=== PATIENT | female | born 1945 | race Caucasian/White ===

== ENCOUNTER 2025-07-15 13:04 | Outpatient (AMB) | payer MEDICARE, BC, SELFPAY ==
--- NOTE | 2025-07-15 13:15 | MHC.PC.OV ---
Vital Signs 07/15/25 13:18 Height 5 ft 2.99 in Weight 215 lb 2 oz BMI 38.1 BP 112/62 Blood Pressure Location Rt brachial Position Sitting Respiration 14 Pulse 88 Pulse Source Pulse Oximeter Temp 98.4 F Temp Source Oral Pulse Oximetry (%) 95 Oxygen Delivery Method Room Air Intake Visit Reasons: [employer] establish care Intake Note: New patient visit Mess Cook Required: No Allergies ciprofloxacin (From Cipro) Allergy (Severe, Verified 07/15/25 13:21) head itching codeine Allergy (Severe, Verified 07/15/25 13:21) Hallucinations amoxicillin (From Augmentin) Allergy (Unknown, Verified 07/15/25 13:21) Itching clavulanic acid (From Augmentin) Allergy (Unknown, Verified 07/15/25 13:21) Itching nitrofurantoin (From Macrobid) Allergy (Unknown, Verified 07/15/25 13:21) Itching Medication List - Last Reconciled 07/15/25 by Josy Elaine PA-C acetaminophen (Tylenol) 325 mg PO QID PRN albuterol sulfate 90 mcg/actuation 2 puffs inhalation Q4-6H PRN beclomethasone dipropionate 80 mcg/actuation (Qvar RediHaler) 1 inh inhalation Q12H cholecalciferol (vitamin D3) 25 mcg PO DAILY [colostrum PO] [cranberry PO .twice daily] docusate sodium (Colace) 100 mg PO DAILY furosemide (Lasix) PO PRN hydrochlorothiazide 12.5 mg PO DAILY lisinopril 5 mg PO DAILY lutein . metformin ER 500 mg PO DAILY multivitamin 1 tab PO DAILY simvastatin 10 mg PO DAILY Tobacco use date assessed: 07/15/25 Fall risk assessment: No Falls in past year Last assessed Fall Risk: 07/15/25 Dental Screening Dental Screen Date: 07/15/25 Did you have a dental visit in the last 12 months?: Yes Did you have a dental problem in the last 6 months where you did not have access to dental care?: No Was dental information given to patient?: Patient has dentist HPI [employer] establish care HPI Details Pt is a 80 y/o female who presents today to establish care. She is transferring from Dr. Gamboa's office. She has a hx of htn, hld, t2dm, kidney stones, fatty liver, zoe (unable to be treated), bcc, chronic low back pain, asthma pulm: Follows with Allergy and immunology for asthma. Recently was prescribed an inhaler that it is not covered by insurance. She is not on any inhaled steroids and has not tried anything in the past. Only uses albuterol as needed. endo: follows with endo for t2dm, hyperparathyroidism (s/p partial parathyroidectomy 01/13) Uro: follows with [facility] for renal stones, hx of lithotripsy and stents msk: hx of chronic low back pain, has tried cortisone injections. Follows with [facility]. 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 Chapin completed in 2021- states never has to go back Bone density: [facility]- states wnl (2022), scheduled this fall 09/05/25 for repeat Low-dose chest CT: We will discuss at follow up [facility] Medical History (Updated 07/17/25 @ 12:29 by Josy Elaine PA-C) H/O nephrolithotomy with removal of calculi Family History (Updated 07/15/25 @ 13:40 by Christel Taylor CMA) Mother Diabetes Other Substance abuse Social History Housing: House Patient Tobacco Use Status: Current everyday Tobacco user Cigarettes Per Day: 7 e-Cigarette/Vaping Use: Never Used service: No Current occupational status: retired Cognitive needs: No Hearing needs: No Vision needs: No Questionnaire PHQ-9 Over the last 2 weeks, how often have you been bothered by any of the following problems? 1. Little interest or pleasure in doing things: not at all 2. Feeling down, depressed, or hopeless: not at all 3. Trouble falling or staying asleep, or sleeping too much: several days 4. Feeling tired or having little energy: several days 5. Poor appetite or overeating: not at all 6. Feeling bad about yourself - or that you are a failure or have let yourself or your family down: not at all 7. Trouble concentrating on things, such as reading the newspaper or watching television: not at all 8. Moving or speaking so slowly that other people could have noticed. Or the opposite - being so fidgety or restless that you have been moving around a lot more than usual: not at all 9. Thoughts that you would be better off or of hurting yourself in some way: not at all Total score: 2 Source: Developed by Drs. Trenton Fernandez, Shane Diop and colleagues, with an educational benja from [employer] ([employer]). Thrive Questionnaire I am a: Patient What is your living situation today?: I have a steady place to live Within the past 12 months, did the food you bought not last and you didn't have the money to get more?: Never true Within the past 12 months, did you worry whether your food would run out before you got money to buy more?: Never true Do you have trouble paying for medicines?: No Do you have trouble getting transportation to medical appointments?: No Do you have trouble paying your heating and electricity bill?: No Do you have trouble taking care of your child, family member or friend?: No Do you have trouble with day-to-day activities such as bathing, preparing meals, shopping, managing finances, etc.?: No Are you currently unemployed and looking for a job?: No Are you interested in more education?: No Please select the resources that you would like help with: None Currently or been in a relationship where the following occur: No concerns reported THRIVE Score: 0 AUDIT C Alcohol Use Questionnaire (AUDIT-C) 1. How often do you have a drink containing alcohol?: Never 3. How often do you have six or more drinks on one occasion?: Never Total Score: 0 NEELAM-7 AMB Questionnaire NEELAM-7 Feeling nervous, anxious, or on edge: 0 = Not at all Not being able to stop or control worryin = Not at all Worrying too much about different things: 0 = Not at all Trouble relaxin = Not at all Being so restless that it is hard to sit still: 0 = Not at all Becoming easily annoyed or irritable: 0 = Not at all Feeling afraid as if something awful might happen: 0 = Not at all Total NEELAM-7 score (0-4 normal; 5-9 mild; 10-14 moderate; 15-21 severe): 0 Source: Developed by Whitney Miller Kurt Kroenke and colleagues, with an educational benja from [employer] ([employer]). Physical exam (Primary Care) Vital Signs: Last Vital Signs Temp 98.4 F 07/15/25 13:18 Pulse 88 07/15/25 13:18 Resp 14 07/15/25 13:18 BP 112/62 07/15/25 13:18 Pulse Ox 95 07/15/25 13:18 Oxygen Delivery Method Room Air 07/15/25 13:18 BMI result Body Mass Index 38.1 Tobacco/Smoking Status: Tobacco use Status Tobacco use date assessed 07/15/25 07/15/25 13:25 Patient Tobacco Use Status Current everyday Tobacco 07/15/25 13:25 e-Cigarette/Vaping Use Never Used 07/15/25 13:25 PHQ-9: PHQ-9 Score PHQ-9: Total score 2 07/15/25 14:03 Currently or been in a relationship where the following occur: No concerns reported Const Orientation/consciousness: patient oriented x3 HENMT Ears: hearing grossly normal bilaterally Neck Thyroid: Thyroid normal Lymphatic: no lymphadenopathy noted Resp Auscultation: clear to auscultation bilaterally Cardio Rate: regular rate Rhythm: regular rhythm Heart sounds: S1 normal heart sound present and S2 normal heart sound present GI Inspection: Yes normal to inspection Palpation (GI): Soft to palpation and Other GI palpation findings present (nontender, no cva tenderness) Auscultation: normoactive bowel sounds Rectal Exam - Female: deferred Skin General skin exam: no rashes or lesions noted Neuro General: patient oriented x3, gait normal and no focal motor deficits Coding Level of Care Code New Pt Level 4 (30056) Complex EM visit Add On G2211 Diagnoses Controlled type 2 diabetes mellitus E11.9 Dyslipidemia E78.5 Renal stones N20.0 Tobacco abuse Z72.0 Right knee pain M25.561 Asthma J45.909 Assessment & Plan Assessment & Plan (1) Controlled type 2 diabetes mellitus: Code(s): E11.9 - Type 2 diabetes mellitus without complications Category: Medical Plan: following with endo will check labs Continue metformin (2) Dyslipidemia: Code(s): E78.5 - Hyperlipidemia, unspecified Category: Medical Plan: We will monitor. Currently simvastatin 10 mg. Labs ordered today (3) Renal stones: Code(s): N20.0 - Calculus of kidney Category: Medical Plan: Followed by urology (4) Tobacco abuse: Code(s): Z72.0 - Tobacco use Category: Medical Plan: Encouraged smoking cessation. We will follow up to review low-dose CAT scan screening. (5) Right knee pain: Code(s): M25.561 - Pain in right knee Category: Medical Plan: X-ray ordered. We will follow up pending test results. Stressful (6) Asthma: Code(s): J45.909 - Unspecified asthma, uncomplicated Category: Medical Plan: We will try QVAR. She will let me know if by insurance Orders: Orders Lipid Panel 07/15/25 E11.9 - Type 2 diabetes mellitus without complications, E78.5 - Hyperlipidemia, unspecified, G89.29 - Other chronic pain, M25.562 - Pain in left knee, M54.50 - Low back pain, unspecified, N20.0 - Calculus of kidney, Z72.0 - Tobacco use TSH reflex Free T4 07/15/25 E11.9 - Type 2 diabetes mellitus without complications, E78.5 - Hyperlipidemia, unspecified, G89.29 - Other chronic pain, M25.562 - Pain in left knee, M54.50 - Low back pain, unspecified, N20.0 - Calculus of kidney, Z72.0 - Tobacco use US carotid duplex BI 07/15/25 E11.9 - Type 2 diabetes mellitus without complications, E78.5 - Hyperlipidemia, unspecified, I10 - Essential (primary) hypertension, M54.2 - Cervicalgia, Z72.0 - Tobacco use Complete Blood Count Auto Diff 07/15/25 E11.9 - Type 2 diabetes mellitus without complications, E78.5 - Hyperlipidemia, unspecified, G89.29 - Other chronic pain, M25.562 - Pain in left knee, M54.50 - Low back pain, unspecified, N20.0 - Calculus of kidney, Z72.0 - Tobacco use Comprehensive [place]. Panel Fast 07/15/25 E11.9 - Type 2 diabetes mellitus without complications, E78.5 - Hyperlipidemia, unspecified, G89.29 - Other chronic pain, M25.562 - Pain in left knee, M54.50 - Low back pain, unspecified, N20.0 - Calculus of kidney, Z72.0 - Tobacco use Hemoglobin A1c 07/15/25 E11.9 - Type 2 diabetes mellitus without complications, E78.5 - Hyperlipidemia, unspecified, G89.29 - Other chronic pain, M25.562 - Pain in left knee, M54.50 - Low back pain, unspecified, N20.0 - Calculus of kidney, R73.01 - Impaired fasting glucose, Z72.0 - Tobacco use UA CC w/rflx Micro + Cult 07/15/25 E11.9 - Type 2 diabetes mellitus without complications, E78.5 - Hyperlipidemia, unspecified, G89.29 - Other chronic pain, M25.562 - Pain in left knee, M54.50 - Low back pain, unspecified, N20.0 - Calculus of kidney, R30.0 - Dysuria, Z72.0 - Tobacco use Microalbumin, Random (w Creat) 07/15/25 E11.9 - Type 2 diabetes mellitus without complications, E78.5 - Hyperlipidemia, unspecified, G89.29 - Other chronic pain, M25.562 - Pain in left knee, M54.50 - Low back pain, unspecified, N20.0 - Calculus of kidney, Z72.0 - Tobacco use XR knee RT 2V 07/15/25 M25.561 - Pain in right knee, M25.562 - Pain in left knee Medications: New beclomethasone dipropionate 80 mcg/actuation (Qvar RediHaler) 1 inh inhalation Q12H 10.6 grams 5RF
[2025-07-15 13:18] VITALS: BP 112/62; PULSE 88; RESP 14; TEMP 36.9; O2SAT 95; BMI 38.1
--- OUTSIDE RECORDS SUMMARY | 2025-07-15 15:24 | XMS_ITS ---
Author Name [facility] Organization Unknown Encounters Encounter Type Encounter Reason Primary Diagnosis Location Date Emergency Chest pain, unspecified [facility] 01/30/2023 Emergency Calculus of kidney [facility] 09/10/2022 Care Team Organization Name Specialty Phone Email Start Date End Da te [facility] 01/30/2023 06/30/2024 [facility]OLIVIER [facility] Primary [facility] 01/30/2023 01/30/2023 [facility] 09/10/2022 09/10/2022
--- OUTSIDE RECORDS SUMMARY | 2025-07-15 15:24 | XMS_ITS | Encounter Summary ---
Author Organization [facility] Address [address] [place] [address] Care Team Providers Care Rotary Planer Set Up Operator Name Role Phone Rubio Gamboa MD Primary Care Provider [phone] Encounter Details Date Type Department Care Team (Late st Contact Info) Description 12/12/2023 Orders Only [facility] [address], [place] [id number] Melinda Gardner APRN [address] [place] [address] Frequency of urination; Flank pain; Burning with urination Social History Tobacco Use Types Packs/Day Years Used Date Smoking Tobacco: Every Day Cigarettes Smokeless Tobacco: Never Alcohol Use Standard Drinks/Week Comments Yes 0 (1 standard drink = 0.6 oz pur e alcohol) rare Comments No Sex and Gender Information Value Date Recorded Sex Assigned at Not on file Legal Sex Female 1:53 PM EDT Gender Identity Not on file Sexual Orientation Not on file documented as of this encounter Plan of Treatment Not on file documented as of this encounter Procedures Procedure Name Priority Date/Time Associated Diagnosis Comments URINE CULTURE Routine 12/12/2023 12:51 PM EST Frequency of urination Flank pain Burning with urination documented in this encounter Results * Urine culture (12/12/2023 12:51 PM EST) Urine Culture, Routine Less than 10,000 CFU/mL. Clinical significance is unlikely for organism(s) present in quantities of less than 10,000 CFU/mL. KHANH SUSCEPTIBILITY 12/13/2023 11:48 AM EST [facility] Urine URINE SPECIMEN OBTAINED BY CLEAN CATCH PROCEDURE / Unknown Collection / Unknown 12/12/2023 12:51 PM EST 12/12/2023 12:52 PM EST Melinda Gardner APRN MICROBIOLOGY - GENERAL ORD ERABLES Final Result Performing Organization Address City/State/[facility] Co de Phone Number [facility] [address] [place] [address] documented in this encounter Visit Diagnoses Diagnosis Frequency of urination Urinary frequency Flank pain Abdominal pain, unspecified site Burning with urination Dysuria documented in this encounter Care Teams Rotary Planer Set Up Operator Relationship Specialty Start Date End Date Rubio Gamboa MD [address] [place] [phone] PCP - General Internal Medicine 01/30/23 documented as of this encounter
--- OUTSIDE RECORDS SUMMARY | 2025-07-15 15:24 | XMS_ITS | Clinical Summary ---
Author Organization [place] [facility] Address [address] [facility] [address] Care Team Providers Care Scrap Kettle Tender Name Role Phone Rubio Gamboa MD Primary Care Provider [phone] Allergies Active Allergy Reactions Criticality Noted Date Comments Amoxicillin-Pot Clavulanate Itching Low 12/11/19 24 Ciprofloxacin Dermatitis Low 07/07/2020 Codeine Mental Status Change 07/07/2020 Nitrofurantoin Itching,Chest Pain High 01/30/2023 Medications metFORMIN ER (GLUCOPHAGE-XR) 500 mg XR 24 hr extended release tablet 07/02/2020 Acti ve simvastatin (ZOCOR) 10 mg tablet TAKE 1 TABLET BY MOUTH EVERY DAY 03/19/2020 Active lisinopriL (PRINIVIL,ZESTR IL) 5 mg tablet 07/02/2020 Act cooper hydroCHLOROthia zide (HYDRODIURIL) 25 mg tablet Take 0.5 tablets (12.5 mg total) by mouth daily. 05/02/2020 Active cranberry conc-ascorbic acid 4,200-20 mg Cap Take by mouth. Active multivitamin with minerals (ONE-A-DAY 50 PLUS ORAL) Take by mouth. Active cholecalciferol , vitamin D3, (VITAMIN D3 ORAL) Take 2,000 Units by mouth. Active acetaminophen (TYLENOL) 500 mg tablet Take 2 tablets (1,000 mg total) by mouth as needed. Active FREESTYLE LITE test strips CHECK ONCE DAILY GLUCOSE 04/21/2020 Active vit A/vit C/vit E/zinc/copper (PRESERVISION AREDS ORAL) Take by mouth. Active fluconazole (DIFLUCAN) 150 mg tablet Take 1 tablet with the onset of symptoms. If still having symptoms 3 days later, take the 2nd tablet. 2 tablet 01/29/2023 Active fluconazole (DIFLUCAN) 150 mg tabletIndicatio ns:Burning with urination Take 1 tablet by mouth only If you develop symptoms of a vaginal yeast infection. 1 tablet 12/11/2023 Active sulfamethoxazol e-trimethoprim (BACTRIM DS;CO-TRIMOXAZO LE DS) 800-160 mg per tabletIndicatio ns:Frequency of urination Take 1 tablet by mouth 2 (two) times daily. 28 tablet 02/14/2024 Active Active Problems No known active problems Social History Tobacco Use Types Packs/Day Years Used Date Smoking Tobacco: Every Day Cigarettes Smokeless Tobacco: Never Tobacco Cessation:Ready to Q uit: Not Asked; Counseling Given: Not Answered Alcohol Use Standard Drinks/Week Comments Yes 0 (1 standard drink = 0.6 oz pur e alcohol) rare Comments No Sex and Gender Information Value Date Recorded Sex Assigned at Not on file Legal Sex Female 1:53 PM EDT Gender Identity Not on file Sexual Orientation Not on file Last Filed Vital Signs Vital Sign Reading Time Taken Comments Blood Pressure 101/63 02/14/2024 4:20 PM EDT Pulse 103 02/14/2024 4:20 PM EDT Temperature 36.8 C (98.2 F) 02/14/2024 4:20 PM EDT Respiratory Rate 15 01/30/2023 6:15 PM EDT Oxygen Saturation 95% 02/14/2024 4:20 PM EDT Inhaled Oxygen Concentration - - Weight 97.5 kg (215 lb) 02/14/2024 4:20 PM EDT Height 163.8 cm (5' 4.5 ) 02/14/2024 4:20 PM EDT Body Mass Index 36.33 02/14/2024 4:20 PM EDT Plan of Treatment Health Maintenance Due Date Last Done Comments HIV screening 1960 Hepatitis C screening 1965 Lipid disorder screening 1987 Shingles vaccine (Shingrix) (1 of 2 - Shingrix (RZV) 2 Dose Standard Series) 1997 Osteoporosis screening (bone density) 2012 RSV Immunization (1 - 1-dose 75+ series) 2022 Covid-19 vaccine series () 07/13/2025 08/25/2022, 04/07/2022, 08/11/2021, Additional history exists Influenza vaccine 07/13/2025 09/13/2023, , 08/26/2021, Additional history exists Diabetes screening 01/30/2026 01/30/2023, 1 , 07/07/2020 Tetanus adult (Td q 10,TDAP once) 01/09/2030 01/09/2020 Pneumococcal Vaccine (50+ years) Completed 05/30/2023, 10/25/2022, 07/23/2019 Breast cancer screening Discontinued Cervical cancer screening Discontinued Colon cancer screening, Colonoscopy Discontinued Meningococcal B Vaccine Aged Out No l onger eligible based on patient's age to complete this topic Meningococcal Vaccine Aged Out No yola jessi eligible based on patient's age to complete this topic Procedures Procedure Name Priority Date/Time Associated Diagnosis Comments BASIC METABOLIC PANEL STAT 01/30/2023 1:50 PM EDT from Last 3 Months or Most Recently Relevant to Health Maintenance Results * (ABNORMAL) Basic metabolic panel (01/30/2023 1:50 PM EDT) Glucose 110 65 - 110 mg/dL 01/30/2023 2:28 PM EDT [facility] Comment: Non-fastin-110 mg/dL Fasting (minimum 6 hrs): 65-99 mg/dL BUN 13 7 - 18 mg/dL 01/30/2023 2:28 PM EDT [facility] Creatinine 0.48(L) 0.55 - 1.02 mg/dL 01/30/2023 2:28 PM EDT [facility] Sodium 136 136 - 145 mmol/L 01/30/2023 2:28 PM EDT [facility] Potassium 4.1 3.5 - 5.1 mmol/L 01/30/2023 2:28 PM EDT [facility] Comment:Specimen slightly he molyzed. Chloride 104 98 - 107 mmol/L 01/30/2023 2:28 PM EDT [facility] CO2 27 21 - 32 mmol/L 01/30/2023 2:28 PM EDT [facility] Anion Gap 5 5 - 15 mmol/L 01/30/2023 2:28 PM EDT + [facility] Calcium 10.6(H) 8.5 - 10.1 mg/dL 01/30/2023 2:28 PM EDT + [facility] eGFR (Creatinine) >60 >=60 mL/min/1.7 3m2 01/30/2023 2:28 PM EDT + [facility] Comment:Estimated glomerular filtration rate (eGFR) was calculated using the improved CKD-EPI Creatinine (2020) equation. The eGFR provides a rough estimate of kidney function within 30% variability. Values under 60 mL/min/1.73 m2 may indicate CKD if noted for more than 3 months. The eGFR is only valid if creatinine is at steady state. Blood Venipuncture / Unknown 01/30/2023 1:50 PM EDT 01/30/2023 1:56 PM EDT us Jennifer Montez DO LAB BLOOD ORDERABLES Final Resu lt + [facility] [address] [place] [address] from Last 3 Months or Most Recently Relevant to Health Maintenance Insurance MEDICARE [facility] MEDICARE [facility] Member Subscriber Plan / Payer ( fective 2012-Present) Name:HermannnyasiaTraa chang Relation to Subscriber:Self Name:HermannnyasiaTara chang Payer ID:[id number] ([facility]) Type:Not on file Address: [place] [id number] MEDICARE [facility] Care Teams Scrap Kettle Tender Relationship Specialty Start Date End Date Rubio Gamboa MD [address] [place] [phone] PCP - General Internal Medicine 01/30/23
== END 2025-07-15 14:16 | disposition home or self-care (01) ==
LOC: HO.HMCFM 13:05
PROVIDERS: PCP Physician Assistant; Visit Provider Physician Assistant
DX: E11.9 Type 2 diabetes mellitus without complications (principal); E78.5 Hyperlipidemia, unspecified; N20.0 Calculus of kidney; Z72.0 Tobacco use; M25.561 Pain in right knee; J45.909 Unspecified asthma, uncomplicated

== ENCOUNTER → 2025-07-15 13:04 | Outpatient (BNVA) | payer MEDICARE, BC, SELFPAY | PROVIDERS: PCP Physician Assistant; Visit Provider Physician Assistant | DX: E11.9 Type 2 diabetes mellitus without complications (principal); M54.50 Low back pain, unspecified; G89.29 Other chronic pain; J45.909 Unspecified asthma, uncomplicated; M25.562 Pain in left knee; Z72.0 Tobacco use; Z87.442 Personal history of urinary calculi | CPT/HCPCS: 96127; 99202 ==

== ENCOUNTER 2025-08-13 08:10 | Outpatient (AMB) | payer MEDICARE, BC, SELFPAY ==
--- NOTE | 2025-08-13 08:14 | A.OFFPC_ITS ---
Vital Signs 08/13/25 08:18 Height 5 ft 2.99 in Weight 217 lb BMI 38.4 BP 112/66 Blood Pressure Location Lt brachial Position Sitting Respiration 16 Pulse 77 Pulse Source Pulse Oximeter Temp 98.1 F Temp Source Oral Pulse Oximetry (%) 95 Oxygen Delivery Method Room Air Intake Visit Reasons: uti results and if possible US/and xray Intake Note: Follow up on test results. Qvar and Breo was not covered by insurance. Director Work Required: No Allergies ciprofloxacin (From Cipro) Allergy (Severe, Verified 08/13/25 08:17) head itching codeine Allergy (Severe, Verified 08/13/25 08:17) Hallucinations amoxicillin (From Augmentin) Allergy (Unknown, Verified 08/13/25 08:17) Itching clavulanic acid (From Augmentin) Allergy (Unknown, Verified 08/13/25 08:17) Itching nitrofurantoin (From Macrobid) Allergy (Unknown, Verified 08/13/25 08:17) Itching Medication List - Last Reconciled 08/13/25 by Josy Elaine PA-C acetaminophen (Tylenol) 325 mg PO QID PRN albuterol sulfate 90 mcg/actuation 2 puffs inhalation Q4-6H PRN Arnuity Ellipta 50 mcg/actuation (fluticasone furoate) 1 inh inhalation Q24H NS cholecalciferol (vitamin D3) 25 mcg PO DAILY [colostrum PO] [cranberry PO .twice daily] cyanocobalamin (vitamin B-12) 1,000 mcg PO DAILY docusate sodium (Colace) 100 mg PO DAILY furosemide (Lasix) PO PRN hydrochlorothiazide 12.5 mg PO DAILY lisinopril 5 mg PO DAILY lutein . metformin ER 500 mg PO DAILY multivitamin 1 tab PO DAILY [probiotic PO] simvastatin 10 mg PO DAILY Tobacco use date assessed: 08/13/25 Fall risk assessment: No Falls in past year Last assessed Fall Risk: 08/13/25 Dental Screening Dental Screen Date: 08/13/25 Did you have a dental visit in the last 12 months?: Yes Did you have a dental problem in the last 6 months where you did not have access to dental care?: No Was dental information given to patient?: Patient has dentist HPI uti results and if possible US/and xray HPI Details Pt is a 80 y/o female who presents today to establish care. She is transferring from Dr. Gamboa's office. She has a hx of htn, hld, t2dm, kidney stones, fatty liver, zoe (unable to be treated), bcc, chronic low back pain, asthma pulm: Follows with Allergy and immunology for asthma. Recently was prescribed an inhaler that it is not covered by insurance. She is not on any inhaled steroids and has not tried anything in the past. Only uses albuterol as needed. endo: follows with endo for t2dm, hyperparathyroidism (s/p partial parathyroidectomy 01/13). Recent TSH was low at 0.4. She is asymptomatic. Uro: follows with [facility] for renal stones, hx of lithotripsy and stents. Recent UA showed white blood cells but patient states that she has no symptoms. She would like to recheck this. msk: hx of chronic low back pain, has tried cortisone injections. Follows with [facility]. Has ongoing right knee pain and x-rays showed arthritic changes and spurring of the patella. Derm: follows with [facility], hx of BCC Mammo: UTD- 2024- completed at [facility] [employer]: goes every other year to [employer] Colonoscopy: Dr. Chapin completed in 2021- states never has to go back Bone density: UTD- states wnl (2022), scheduled this fall 09/05/25 for repeat Low-dose chest CT: We will discuss at follow up [facility] Medical History (Updated 08/13/25 @ 08:53 by Josy Elaine PA-C) H/O nephrolithotomy with removal of calculi Family History Mother Diabetes Other Substance abuse Social History (Updated 08/13/25 @ 08:28 by Christel Taylor CMA) Housing: House Alcohol intake: current Patient Tobacco Use Status: Current everyday Tobacco user Cigarettes Per Day: 7 Years Smoked: 65 e-Cigarette/Vaping Use: Never Used Second Hand Smoke Exposure: No service: No Current occupational status: retired Cognitive needs: No Hearing needs: No Vision needs: No Questionnaire Thrive Questionnaire Date Thrive assessed: 07/15/25 I am a: Patient What is your living situation today?: I have a steady place to live Within the past 12 months, did the food you bought not last and you didn't have the money to get more?: Never true Within the past 12 months, did you worry whether your food would run out before you got money to buy more?: Never true Do you have trouble paying for medicines?: No Do you have trouble getting transportation to medical appointments?: No Do you have trouble paying your heating and electricity bill?: No Do you have trouble taking care of your child, family member or friend?: No Do you have trouble with day-to-day activities such as bathing, preparing meals, shopping, managing finances, etc.?: No Are you currently unemployed and looking for a job?: No Are you interested in more education?: No Please select the resources that you would like help with: None Currently or been in a relationship where the following occur: No concerns reported THRIVE Score: 0 Physical exam (Primary Care) Vital Signs: Last Vital Signs Temp 98.1 F 08/13/25 08:18 Pulse 77 08/13/25 08:18 Resp 16 08/13/25 08:18 BP 112/66 08/13/25 08:18 Pulse Ox 95 08/13/25 08:18 Oxygen Delivery Method Room Air 08/13/25 08:18 BMI result Body Mass Index 38.4 Tobacco/Smoking Status: Tobacco use Status Tobacco use date assessed 08/13/25 08/13/25 08:28 Patient Tobacco Use Status Current everyday Tobacco 08/13/25 08:28 e-Cigarette/Vaping Use Never Used 08/13/25 08:28 Thrive Assessment: Date of Thrive Assessment Date Thrive assessed 07/15/25 08/13/25 08:15 Currently or been in a relationship where the following occur: No concerns reported Const Orientation/consciousness: patient oriented x3 [facility] Ears: hearing grossly normal bilaterally Neck Thyroid: Thyroid normal Lymphatic: no lymphadenopathy noted Resp Auscultation: clear to auscultation bilaterally Cardio Rate: regular rate Rhythm: regular rhythm Heart sounds: S1 normal heart sound present and S2 normal heart sound present GI Inspection: Yes normal to inspection Palpation (GI): Soft to palpation and Other GI palpation findings present (nontender, no cva tenderness) Auscultation: normoactive bowel sounds Rectal Exam - Female: deferred Skin General skin exam: no rashes or lesions noted Neuro General: patient oriented x3, gait normal and no focal motor deficits Coding Level of Care Code Est Pt Level 4 (27804) Complex EM visit Add On G2211 Diagnoses Right knee pain M25.561 Low TSH level R79.89 Mild persistent asthma, uncomplicated J45.30 Abnormal urinalysis R82.90 HTN (hypertension) I10 Controlled type 2 diabetes mellitus E11.9 Assessment & Plan Assessment & Plan (1) Right knee pain: Code(s): M25.561 - Pain in right knee Category: Medical Plan: referral to [facility] (2) Low TSH level: Code(s): R79.89 - Other specified abnormal findings of blood chemistry Category: Medical Plan: will plan to recheck. has follow up with endo 09/25. (3) Mild persistent asthma, uncomplicated: Code(s): J45.30 - Mild persistent asthma, uncomplicated Category: Medical Plan: arnuity ordered- advised to rinse her mouth daily she will let me know if she is using albuterol (4) Abnormal urinalysis: Code(s): R82.90 - Unspecified abnormal findings in urine Plan: ua and culture ordered no sx will follow up pending test results (5) HTN (hypertension): Code(s): I10 - Essential (primary) hypertension Category: Medical Plan: wnl continue current plan (6) Controlled type 2 diabetes mellitus: Code(s): E11.9 - Type 2 diabetes mellitus without complications Category: Medical Plan well controlled continue metformin Orders: Orders TSH reflex Free T4 Today R79.89 - Other specified abnormal findings of blood chemistry UA CC w/rflx Micro + Cult Today R30.0 - Dysuria Referrals Orthopedics Referral M25.561 - Pain in right knee Medications: Artemio Patel Ellipta 50 mcg/actuation (fluticasone furoate) 1 inh inhalation Q24H 30 ea 2RF NS cyanocobalamin (vitamin B-12) 1,000 mcg PO DAILY 90 caps 0RF Patient Instructions: [phone] --[facility]
[2025-08-13 08:18] VITALS: BP 112/66; PULSE 77; RESP 16; TEMP 36.7; O2SAT 95; BMI 38.4
== END 2025-08-13 09:08 | disposition home or self-care (01) ==
LOC: HO.HMCFM 08:11
PROVIDERS: PCP Physician Assistant; Visit Provider Physician Assistant
DX: M25.561 Pain in right knee (principal); E11.9 Type 2 diabetes mellitus without complications; R79.89 Other specified abnormal findings of blood chemistry; J45.30 Mild persistent asthma, uncomplicated; R82.90 Unspecified abnormal findings in urine; I10 Essential (primary) hypertension

== ENCOUNTER → 2025-08-13 08:10 | Outpatient (BNVA) | payer MEDICARE, BC, SELFPAY | PROVIDERS: PCP Physician Assistant; Visit Provider Physician Assistant | DX: I10 Essential (primary) hypertension (principal); E78.5 Hyperlipidemia, unspecified; E11.9 Type 2 diabetes mellitus without complications; M54.50 Low back pain, unspecified; J45.909 Unspecified asthma, uncomplicated; M25.561 Pain in right knee; R79.89 Other specified abnormal findings of blood chemistry; J45.30 Mild persistent asthma, uncomplicated; R82.90 Unspecified abnormal findings in urine; R30.0 Dysuria; Z87.442 Personal history of urinary calculi | CPT/HCPCS: 99212 ==